=== PATIENT | female | born 1980 | race Caucasian/White ===

== ENCOUNTER 2025-07-26 10:42 | Outpatient (AMB) | payer OTHER, SELFPAY ==
--- NOTE | 2025-07-26 11:32 | A.OFFVIS_ITS ---
Intake Visit Reasons: 6mnth Allergies erythromycin base Allergy (Unknown, Verified 07/22/25 10:58) Unknown HPI Comments Details: The patient is a 45-year-old female presenting with migraines and concerns about her eyes. Migraines have been managed with Topiramate for almost nine years. She reports severe headaches upon missing the morning medication dose and also takes anti-inflammatory medication to manage symptoms. Her discomfort with her eyes emerged years after starting Topiramate, which could potentially be linked to her medication use. The patient underwent a glaucoma test, which revealed unspecified spots on her eyes. With a family history of glaucoma, she is concerned about the risks associated with continued use of Topiramate. She awaits a detailed review of her test results from her eye doctor. There is a history of glaucoma in her family, affecting both her grandfather and uncle, making her particularly cautious about changes in her vision. [facility] Medical History (Updated 07/26/25 @ 11:41 by Merlene Morales MD) Compression of brain Basilar migraine Migraine without aura Review of Systems Const Details: - Neurological: Reports headaches associated with missed Topiramate doses. - Ophthalmologic: Reports eye discomfort and spots identified during a glaucoma test. Family history of glaucoma reported. Physical Exam Neuro Other: Mental Status: Alert and oriented to person, place, and time. Normal attention. Normal spontaneous speech, fluency, and comprehension. No obvious issues with mood and memory. Affect is appropriate. Cranial Nerves: CN II: Visual terrell full to confrontation, visual acuity intact. CN III, IV, : Pupils equal, round, reactive to light and accommodation. Extraocular movements are normal. CN V: Facial sensation is normal. CN VII: Facial movements symmetrical. CN VIII: Hearing intact to bedside conversation is normal. CN IX, X: Palate elevates symmetrically. CN XI: Shoulder shrug and head turn symmetrical. CN XII: Tongue midline without atrophy or fasciculations. Motor: Bulk and tone normal in all extremities. No significant muscle weakness in arms and legs. No drift. Reflexes: Deep tendon reflexes 2+ and symmetric. Plantar response down-going bilaterally. Coordination: Ggpfpl-hi-[id number] and kubv-vj-anbs testing normal. No dysmetria. Gait and Station: No obvious gait abnormality. No ataxia or instability. Extrapyramidal: Full facial expressions and blinking. No rigidity. Movements are appropriate with no tremor or abnormality. Speech: Normal; no dysarthria or tremor. 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 More recently she started having bilateral eye aching and some blind spots. She had seen her eye doctor and had some testing done but follow-up appointment was in few days and she did not know her exact diagnosis. She was advised to follow-through with her eye doctor and if her eye pressure is high or if she is diagnosed with pre glaucoma or glaucoma, she should reconsider taking topiramate. In that case I would either decrease the dose significantly to 25 mg at night or change it altogether to an alternate medicine. She understood the plan and would get back to us if her eye examination revealed high pressure. Coding Level of Care Code Est Pt Level 4 (92084) Diagnoses Migraine without aura and without status migrainosus, not intractable G43.009 Status migrainosus presence: without status migrainosus Intractability: not intractable
--- OUTSIDE RECORDS SUMMARY | 2025-07-26 12:38 | XMS_ITS | Encounter Summary ---
Author Organization [facility] Address [address] [place] [address] Care Team Providers Care Hurricane Tracker Name Role Phone Yoselin Kent Primary Care Provider [phone] Encounter Details Date Type Department Care Team (Latest Contact Info) Description 05/11/2025 Lab Requisition [facility] - Main Lab [address] [facility] [place] [address] Jessica Dillon MD [address] [address] Encounter for gynecological examination (general) (routine) without abnormal findings Social History Tobacco Use Types Packs/Day Years Used Date Smoking Tobacco: Never Assessed Comments Unknown Sex and Gender Information Value Date Recorded Sex Assigned at Not on file Legal Sex Female 4:32 AM EST Gender Identity Not on file Sexual Orientation Not on file documented as of this encounter Plan of Treatment Not on file documented as of this encounter Procedures Procedure Name Priority Date/Time Associated Diagnosis Comments HPV WITH REFLEX GENOTYPE Routine 05/10/2025 12:00 PM EDT Encounter for gynecological examination (general) (routine) without abnormal findings PAP SMEAR Routine 05/10/2025 12:00 PM EDT Encounter for gynecological examination (general) (routine) without abnormal findings documented in this encounter Results * HPV with reflex genotype (05/10/2025 12:00 PM EDT) HPV Negative Negative LAB MICROBIOLOGY METHOD 05/11/2025 1:51 PM EDT [facility] Brushing/Spatula Cervix uteri structure / Unknown 05/10/2025 12:00 PM EDT 05/11/2025 6:51 AM EDT us Jessica Dillon MD LAB MOLECULAR DIAGNOSTIC S ORDERABLES Final Result [facility] [address] [place] [address], * (ABNORMAL) Pap smear (05/10/2025 12:00 PM EDT) Interpretation Low grade squamous intraepithelial lesion(A) 05/12/2025 3:57 PM EDT [facility] Clinical Information Lsil 05/12/2025 3:57 PM EDT [facility] General Categorization Epithelial cell abnormality, see interpretation 05/12/2025 3:57 PM EDT [facility] Specimen Adequacy Satisfactory for evaluation, endocervical/mendoza sformation zone component present 05/12/2025 3:57 PM EDT [facility] Pap Methodology Liquid Based Pap Test 05/12/2025 3:57 PM EDT [facility] Disclaimer The Pap test is a screening test which carries an inherent false negative rate. These test results should be correlated with the patient's clinical findings and history. This Pap test was processed using an automated screening system. Technical cytopathology services provided by [facility], at [address] [place] [address] (CLIA # [id number]/Ramona Jones MD, Manager Licensing.) 05/12/2025 3:57 PM EDT [facility] Console Pap Interpretation Reported 05/12/2025 3:57 PM EDT [facility] Brushing/Spatula Vaginal structure / Unknown 05/10/2025 12:00 PM EDT 05/11/2025 6:51 AM EDT us Jessica Dillon MD LAB CYTOLOGY ORDERABLES Final Result [facility] [address] [place] [address], documented in this encounter Visit Diagnoses Diagnosis Encounter for gynecological examination (general) (routine) without abnormal findings documented in this encounter Care Teams Hurricane Tracker Relationship Specialty Start Date End Date Yoselin Kent PA [address] [facility] [address] [place], [place] PCP - General Physician Respiratory Physician 06/17/25 documented as of this encounter
--- OUTSIDE RECORDS SUMMARY | 2025-07-26 12:38 | XMS_ITS | Encounter Summary ---
Author Organization [facility] Address [address] [place] [address] Care Team Providers Care Data Conversion Developer Name Role Phone Yoselin Kent Primary Care Provider [phone] Encounter Details Date Type Department Care Team (Latest Contact Info) Description 04/20/2025 Lab Requisition [facility] - Main Lab [address] [facility] [employer] [place] [phone] Jessica Dillon MD [address] [phone] Acute vaginitis; Urinary tract infection, site not specified; Encounter for screening for infections with a predominantly sexual mode of transmission Social History Tobacco Use Types Packs/Day Years [...] Procedure Name Priority Date/Time Associated Diagnosis Comments VAGINITIS PATHOGENS BY PCR Routine 04/19/2025 12:00 AM EDT Acute vaginitis Urinary tract infection, site not specified Encounter for screening for infections with a predominantly sexual mode of transmission CHLAMYDIA TRACHOMATIS AND NEISSERIA GONORRHOEAE PCR Routine 04/19/2025 12:00 AM EDT Acute vaginitis Urinary tract infection, site not specified Encounter for screening for infections with a predominantly sexual mode of transmission documented in this encounter Results * (ABNORMAL) Vaginitis pathogens molecular study (04/19/2025 12:00 AM EDT) Trichomonas vaginalis Negative Negative 04/21/2025 10:22 AM EDT [facility] Gardnerella vaginalis Positive(A) Negative 04/21/2025 10:22 AM EDT [facility] La Species Negative Negative 10:22 AM EDT [facility] Swab Vaginal structure / Unknown 04/19/2025 04/20/2025 1:56 PM EDT us Jessica Dillon MD LAB MICROBIOLOGY - GENER AL ORDERABLES Final Result Performing Organization Address [facility]/ZIP Co de Phone Number [facility] [address] [place] [address], [place] [phone] * Chlamydia trachomatis and Neisseria gonorrhoeae molecular study (04/19/2025 12:00 AM EDT) Pathologist [facility] Neisseria gonorrhoeae PCR Negative Negative LAB MOLECULAR DIAGNOSTICS METHOD 04/20/2025 4:40 PM EDT [facility] Chlamydia trachomatis PCR Negative Negative LAB MOLECULAR DIAGNOSTICS METHOD 04/20/2025 4:40 PM EDT [facility] Swab Cervix uteri structure / Unknown 04/19/2025 04/20/2025 1:55 PM EDT us Jessica Dillon MD LAB MICROBIOLOGY - GENER AL ORDERABLES Final Result [facility] [address] [place] [address], [place] [phone] documented in this encounter Visit Diagnoses Diagnosis Acute vaginitis Unspecified vaginitis and vulvovaginitis Urinary tract infection, site not specified Encounter for screening for infections with a predominantly sexual mode of transmission documented in this encounter Care Teams Data Conversion Developer Relationship Specialty Start Date End Date Yoselin Kent PA [address] [facility] [address] [place] [address] [place] PCP - General Physician Paradi Operator 06/17/25 documented as of this encounter
--- OUTSIDE RECORDS SUMMARY | 2025-07-26 12:38 | XMS_ITS | Clinical Summary ---
Author Organization [address] Address [address] [place] [address] Phone Care Team Providers Care Corporate Communications Specialist Name Role Phone Yoselin Kent Primary Care Provider [phone] Encounters Date Type Department Care Team Description 06/17/2025 7:05 AM EDT - 06/17/2025 11:59 PM EDT Hospital Encounter [facility] [address] [place] [phone] Encounter for screening mammogram for breast cancer Discharge Disposition: Home or Self Care 05/11/2025 Lab Requisition [facility] - Main Lab [address] [facility] [place] [phone] Jessica Dillon MD Encounter for gynecological examination (general) (routine) without abnormal findings from Last 3 Months Social History Tobacco Use Types Packs/Day Years Used Date Smoking Tobacco: Never Assessed Comments Unknown Sex and Gender Information Value Date Recorded Sex Assigned at Not on file Legal Sex Female 4:32 AM EST Gender Identity Not on file Sexual Orientation Not on file Plan of Treatment Health Maintenance Due Date Last Done Comments Colorectal Cancer Screening: Colonoscopy 1979 Cholesterol Screening (Lipid Panel) 09/15/2022 HIV Screening 09/15/2022 Hepatitis C Screening 09/15/2022 Social Influencers of Health Screening 09/15/2022 Depression Screening 10/13/2024 COVID-19 Vaccine ( season) 2025 09/25/2021, 02/28/2021, 02/07/2021 Influenza Vaccine (#1) 2025 Breast Cancer Screening 06/17/2027 06/17/20 25, 06/15/2024, 06/10/2023, Additional history exists Cervical Cancer Screening: HPV 05/10/2030 05/10/2025 DTaP,Tdap,and Td Vaccines (10 - Td or Tdap) 12/12/2030 12/12/2020, 04/05/2011, 04/23/2001, Additional history exists RSV Immunization Adult Patients (1 - 1-dose 75+ series) 2054 MMR Vaccines Completed 03/13/1991, 06/13/1980 Varicella Vaccines Completed 06/13/1995, 04/12/1995 Hepatitis B Vaccines Completed 09/12/1998, 04/12/1998, 03/13/1998 HIB Vaccines Aged Out No longer eligi ble based on patient's age to complete this topic HPV Vaccines Aged Out No longer eligi ble based on patient's age to complete this topic Hepatitis A Vaccines Aged Out No long er eligible based on patient's age to complete this topic IPV Vaccines Aged Out No longer eligi ble based on patient's age to complete this topic Meningococcal ACWY Vaccine Aged Out N o longer eligible based on patient's age to complete this topic Meningococcal B Vaccine Aged Out No l onger eligible based on patient's age to complete this topic Pneumococcal Vaccine: Pediatrics (0 to 5 Years) and At-Risk Patients (6 to 49 Years) Aged Out No longer eligible based on patient's age to complete this topic RSV Immunization Patients Under 20 months Aged Out No longer eligible based on patient's age to complete this topic Procedures Procedure Name Priority Date/Time Associated Diagnosis Comments MG MAMMO DIGITAL SCREENING W BRENDAN BILAT Routine 06/17/2025 7:32 AM EDT Encounter for screening mammogram for breast cancer PAP SMEAR Routine 05/10/2025 12:00 PM EDT Encounter for gynecological examination (general) (routine) without abnormal findings HPV WITH REFLEX GENOTYPE Routine 05/10/2025 12:00 PM EDT Encounter for gynecological examination (general) (routine) without abnormal findings from Last 3 Months Results * MG Mammo Digital Screening w Brendan bilat (06/17/2025 7:32 AM EDT) Anatomical Region Laterality Modality Breast Bilateral Mammography 06/17/2025 7:39 AM EDT Impressions 06/17/2025 7:42 AM EDT No mammographic evidence of malignancy. A negative mammogram in the presence of a clinically suspicious palpable abnormality does not preclude the possibility of malignancy or alter the indications for biopsy. PQRI CPT II 3341F Code 75039, 94416 PQRI 225 CPT II 7025F TISSUE DENSITY: There are scattered areas of fibroglandular density. (BI-RADS category B) IMPRESSION: Benign. BI-RADS CATEGORY: 1 - NEGATIVE RECOMMENDATION: Screening bilateral mammogram is recommended in 1 year. Mammo Location: [facility], [address] [place] [address] -------- FINAL REPORT -------- Dictated By: Jerry Neves Dictated Date: 06/17/2025 07:39 ET Assigned Physician: Jerry Neves Reviewed and Electronically Signed By: Jerry Neves Signed Date: 06/17/2025 07:42 ET Workstation ID: [id number] Transcribed By: Self Edit Transcribed Date: 06/17/2025 07:39 ET Narrative 06/17/2025 7:42 AM EDT CLINICAL: The patient is a 45 years Female presenting for routine screening mammography. COMPARISON: Most recently 06/11/2024 and most remotely 04/14/2019. TECHNIQUE: Full-field digital mammography of the breasts bilaterally consisting of tomosynthesis in MLO and CC projection is performed in the [employer] 2000-D unit. Computer aided detection utilizing the iCAD system was utilized. FINDINGS: The breasts are again seen to be composed of a combination of fatty and fibroglandular elements. There is no cluster of microcalcifications, mass, or area of architectural distortion. There is no skin thickening or nipple retraction. Procedure Note Jerry Neves MD - 06/17/2025 CLINICAL: The patient is a 45 years Female presenting for routinescreening mammography. COMPARISON: Most recently 06/11/2024 and most remotely 04/14/2019. TECHNIQUE: Full-field digital mammography of the breasts bilaterallyconsisting of tomosynthesis in MLO and CC projection is performed in the [employer] 2000-D unit. Computer aided detection utilizing the [employer] was utilized. FINDINGS: The breasts are again seen to be composed of a combination offatty and fibroglandular elements. There is no cluster ofmicrocalcifications, mass, or area of architectural distortion. There isno skin thickening or nipple retraction. IMPRESSION: No mammographic evidence of malignancy. A negative mammogram in the presence of a clinically suspicious palpableabnormality does not preclude the possibility of malignancy or alter theindications for biopsy. PQRI CPT II 3341F Code 10053, 00703 PQRI 225 CPT II 7025F TISSUE DENSITY: There are scattered areas of fibroglandular density.(BI-RADS category B) IMPRESSION: Benign. BI-RADS CATEGORY: 1 - NEGATIVE RECOMMENDATION: Screening bilateral mammogram is recommended in 1 year. Mammo Location: [facility], [facility], [address] [place] [address] -------- FINAL REPORT -------- Dictated By: Jerry Neves Dictated Date: 06/17/2025 07:39 ET Assigned Physician: Jerry Neves Reviewed and Electronically Signed By: Jerry Neves Signed Date: 06/17/2025 07:42 ET Workstation ID: [id number] Transcribed By: Self Edit Transcribed Date: 06/17/2025 07:39 ET us Self Referral Sppl IMG BI PROCEDURES Final Resul t * HPV with reflex genotype (05/10/2025 12:00 PM EDT) HPV Negative Negative LAB MICROBIOLOGY METHOD 05/11/2025 1:51 PM EDT [facility] Brushing/Spatula Cervix uteri structure / Unknown 05/10/2025 12:00 PM EDT 05/11/2025 6:51 AM EDT Jessica Dillon MD LAB MOLECULAR DIAGNOSTIC S ORDERABLES Final Result [facility] [address] [place] [address], [place] [phone] * (ABNORMAL) Pap smear (05/10/2025 12:00 PM [...] screening system. Technical cytopathology services provided by [facility], at [address] [place] [address] (CLIA # [id number]/Ramona Jones MD, Agricultural Research Director.) 05/12/2025 3:57 PM EDT [facility] Console Pap Interpretation Reported 05/12/2025 3:57 PM EDT [facility] Brushing/Spatula Vaginal structure / Unknown 05/10/2025 12:00 PM EDT 05/11/2025 6:51 AM EDT us Jessica Dillon MD LAB CYTOLOGY ORDERABLES Final Result [facility] [address] [place] [address], from Last 3 Months Insurance [facility] [address] [place] [address] Care Teams Corporate Communications Specialist Relationship Specialty Start Date End Date Yoselin Kent PA [address] [facility] [address] [place], [place] PCP - General Physician Vacuum Form Operator 06/17/25
--- OUTSIDE RECORDS SUMMARY | 2025-07-26 12:39 | XMS_ITS | Patient Health Record ---
Author Organization [facility] Address [address] [place] [address] Care Team Providers Care Lithographic Press Operator Apprentice Name Role Phone Glenn Lund MD Primary Care Provider Un available Jeffrey Greenwood Unavailable [phone] Allergies Allergen (clinical drug ingredient) Drug/Non Drug Allergy documented on EMR Reaction Allergy Type Onset Date Status erythromycin Erythromycin vomiting Drug Allergy A ctive Adhesive Tape rash Drug Allergy Act bernice Reason For Referral No Information Medications Medication SIG (Take, Route, Frequency, Duration) Notes Start Date End Date Status Cetirizine HCl 10 MG Orally Once a day Not-Taking Desoximetasone 0.5% Externally Not-Taking Loratadine 10 MG Orally Act bernice Topiramate 50 MG Orally Once a day Active Nitro-Bid 2 % as directed Transder mal apply bid; Duration: 30 days 12/12/2017 Active Fluconazole 150 MG Orally N ot-Taking Zomig Not-Taking EpiPen Not-Taking Social History Tobacco Use: Social History Observation Description Date Details (start date - stop date) Never Smoker NA - NA Tobacco Use/Smoking Question Answer Notes Are you a: nonsmoker Additional Findings: Tobacco Non-User Current no n-smoker Alcohol Screen Question Answer Notes Did you have a drink containing alcohol in the p ast year? Yes Points 0 Interpretation Negative Tobacco use other than smoking: Question Answer Notes Are you an other tobacco user? No Problems Problem Type SNOMED Code ICD Code Onset Dates Problem Status W/U Status Risk Notes Problem Acquired hallux valgus (72861545) Hallux valgus (acquired), left foot (M20.12) Active confirmed Problem Acquired hallux valgus (21614144) Hallux valgus (acquired), right foot (M20.11) Active confirmed Problem Gout (44738783) Gout, unspecified (M10.9) Active confirmed Problem Raynaud's disease (726971923) Raynauds disease without gangrene (I73.00) Active confirmed Plan Of Treatment Pending Test Test Name Order Date *Uric Acid, Serum 12/12/2017 *Sedimentation Rate-Westergren 8 X ray : Foot, right 3V 12/12/2017 Insurance Providers Payer Name Payer Address Payer Phone Subscriber Number Group Number Insured Name Patient Relationship to Insured Coverage Start Date Coverage End Date [place] [address] [id number] [phone] [id number] Martinez Jang Spouse - patient is the spouse of the insured Medical (General) History Medical History History ICD Code Anemia Carpal tunnel Disfunction of the Eustaciann tube Headaches Hyperlipidemia Joint implants/screws Migraines Post surgical menopause Scarlet fever Surgical History Surgery Date(Month/Year) 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
--- OUTSIDE RECORDS SUMMARY | 2025-07-26 12:39 | XMS_ITS | Encounter Summary ---
Author Organization [facility] Address [address] [place] [address] Care Team Providers Care Button Clamper Name Role Phone Yoselin Kent Primary Care Provider [phone] Encounter Details Date Type Department Care Team (Late st Contact Info) Description 08/31/2024 Lab Requisition [facility] - Main Lab [address] [place] [phone] Jessica Dillon MD [address] [phone] Acute vaginitis Social History Tobacco Use Types Packs/Day Years [...] Diagnosis Comments VAGINITIS PATHOGENS BY PCR Routine 08/31/2024 6:05 PM EST Acute vaginitis documented in this encounter Results * (ABNORMAL) Vaginitis pathogens molecular study (08/31/2024 6:05 PM EST) Trichomonas vaginalis Negative Negative 09/01/2024 10:24 AM [facility] Gardnerella vaginalis Negative Negative 09/01/2024 10:24 AM [facility] La Species Positive(A) Negative 09/01/20 10:24 AM EST [facility] Swab Vaginal structure / Unknown 08/31/2024 6:05 PM EST 08/31/2024 6:09 PM EST us Jessica Dillon MD LAB MICROBIOLOGY - GENER AL ORDERABLES Final Result [facility] [address] [place] [address], documented in this encounter Visit Diagnoses Diagnosis Acute vaginitis Unspecified vaginitis and vulvovaginitis documented in this encounter Care Teams Button Clamper Relationship Specialty Start Date End Date Yoselin Kent PA [address] [facility] [address] [place], [place] PCP - General Physician Cider Maker 06/17/25 documented as of this encounter
== END 2025-07-26 11:41 | disposition home or self-care (01) ==
LOC: HO.HSM 10:43
PROVIDERS: PCP Physician Assistant Medical; Referring Provider Physician Assistant Medical; Visit Provider Psychiatry & Neurology Neurology
DX: G43.009 Migraine without aura, not intractable, without status migrainosus (principal)
CPT/HCPCS: 99214